=== PATIENT | male | born 1985 | race Two or more races ===

== ENCOUNTER 2023-04-26 13:51 | Emergency (ER) | payer SELFPAY ==
[~2023-04-26] VITALS: Ht 177.8 cm; Wt 105.0 kg
[2023-04-26 14:31] LABS: BASOPHILS % (AUTO) 0.6 % (0.0-2.0); EOSINOPHILS % (AUTO) 0.5 % (1.0-6.0); HEMATOCRIT 46.4 % (41-53); HEMOGLOBIN 15.4 g/dL (13.5-17.5); LYMPHOCYTES # (AUTO) 1.1 K/uL (1.0-4.8); LYMPHOCYTES % (AUTO) 9.6 % (22.0-44.0); MEAN CORPUSCULAR HEMOGLOBIN 27.5 pg (26.0-34.0); MEAN CORPUSCULAR HGB CONC 33.2 G/dL (31.0-37.0); MEAN CORPUSCULAR VOLUME 83 fL (80-100); MONOCYTES # (AUTO) 0.8 K/uL (0.1-1.0); MONOCYTES % (AUTO) 6.8 % (2.0-9.0); NEUTROPHILS # (AUTO) 9.5 K/uL (1.8-7.7); NEUTROPHILS % (AUTO) 82.5 % (40.0-70.0); PLATELET COUNT (AUTO) 321 K/uL (150-450); RED CELL DISTRIBUTION WIDTH 13.5 % (11.5-14.5); WHITE BLOOD COUNT (AUTO) 11.5 K/uL (4.5-11.0)
[2023-04-26 14:37] LABS: ANION GAP 10 mmol/L (8-16); CALCIUM, TOTAL 9.6 mg/dL (8.8-10.5); CARBON DIOXIDE 26 mmol/L (22-29); CHLORIDE 110 mmol/L (98-107); GLOMERULAR FILTR. RATE CALC 46 mL/min (>60); GLUCOSE,RANDOM 109 mg/dL (70-110); POTASSIUM 3.5 mmol/L (3.5-5.1); SODIUM SERUM 146 mmol/L (136-145); UREA NITROGEN, BLOOD 19 mg/dL (7-18)
[2023-04-26 14:43] LABS: ALANINE AMINOTRANSFERASE 42 U/L (12-78); ALBUMIN 3.9 g/dL (3.4-5.0); ALKALINE PHOSPHATASE 84 U/L (46-116); ASPARTATE AMINOTRANSFERASE 52 U/L (15-37); BILIRUBIN,TOTAL 0.6 mg/dL (0.1-1.0); TOTAL PROTEIN, SERUM 7.2 g/dL (6.4-8.2)
[2023-04-26 14:44] LABS: ALCOHOL, URINE DRUG SCREEN NEGATIVE (NEGATIVE); AMPHET/METH SCREEN,URINE POSITIVE (NEGATIVE); BARBITURATE SCREEN, URINE NEGATIVE (NEGATIVE); BENZODIAZEPINES SCREEN,URINE POSITIVE (NEGATIVE); CANNABINOID SCREEN,URINE NEGATIVE (NEGATIVE); COCAINE SCREEN,URINE NEGATIVE (NEGATIVE); METHADONE SCREEN, URINE NEGATIVE (NEGATIVE); OPIATE SCREEN,URINE NEGATIVE (NEGATIVE); PHENCYCLIDINE SCREEN,URINE NEGATIVE (NEGATIVE)
[2023-04-26 14:49] LABS: TROPONIN I-HIGH SENSITIVITY 16 ng/L (<76)
[2023-04-26 14:56] LABS: ALCOHOL, BLOOD (SERUM) < 3 mg/dL (0-10)
[2023-04-26] MEDS ORDERED: SODIUM CHLORIDE 0.9% 2,000 ML IV ONE (15:00)
[2023-04-26 16:07] VITALS: BP 134/86; PULSE 98; RESP 18
== END 2023-04-26 16:08 | disposition home or self-care (01) ==
LOC: EMS 13:53
DX: F15.10 Other stimulant abuse, uncomplicated (principal); V99.XXXA Unspecified transport accident, initial encounter; Y93.89 Activity, other specified; Y92.89 Other specified places as the place of occurrence of the external cause; Y99.8 Other external cause status
CPT/HCPCS: 80053; 84484; 85025; 36415; 71045; 99284; 80307 ×2; G0480